=== PATIENT | male | born 1950 | race African-American/Black ===

== ENCOUNTER 2019-02-26 09:15 | Inpatient (IN) | payer OTHER, MEDICAID ==
[~2019-02-26] VITALS: Ht 175.3 cm; Wt 99.8 kg
[2019-02-26 09:15] VITALS: BP 180/89
[~2019-02-26 09:15] MED LIST: ACETAMINOPHEN325 M1 PO; ADULT LOW DOSE81 MG PO; ATENOLOL 50 MG50 M1 PO; BACLOFEN 10MG T10 MG PO; COUMADIN 3 MG TA3 MG PO; DEPAKOTE ER500 MG PO; DESYREL100 MG PO; DILANTIN50 MG PO; GABAPENTIN100 MG PO; HYDROCODON-ACE1 EAC4 PO; KEPPRA 500 MG500 M1 PO; LEVOFLOXACIN250 MG PO; LIPITOR40 MG PO; MOM PO; MORPHINE S10 MG/5 M2 PO; MORPHINE SUBLING; NEURONTIN600 MG PO; NORVASC10 MG PO; PHENYTOIN SODI100 M3 PO; PHENYTOIN100 MG/4 M PO; RISPERDAL 1 MG T1 MG PO; RISPERDAL0.5 MG PO; ROXANOL 20 M20 MG/ML PO; THERA-M CAPLET1 EAC1 PO
[2019-02-26] MEDS ORDERED: CARVEDILOL12.5 MG PO (09:23)
[2019-02-26] MEDS ORDERED: ELIQUIS5 MG PO (09:24)
[2019-02-26] MEDS ORDERED: LISINOPRIL2.5 MG PO (09:25)
[2019-02-26] MEDS ORDERED: IPRAT-ALBUT 0.5-3 ML INH (09:25)
[2019-02-26] MEDS ORDERED: MELATONIN3 M1 PO (09:26)
[2019-02-26] MEDS ORDERED: NYSTATIN1 EA10 TOP (09:28)
[2019-02-26] MEDS ORDERED: SEROQUEL 25 MG25 MG PO (09:29)
[2019-02-26] MEDS ORDERED: FLOMAX0.4 MG PO (09:29)
[2019-02-26] MEDS ORDERED: OLANZAPINE ODT5 MG PO (09:29)
[2019-02-26] MEDS ORDERED: VITAMIN D32000 UNIT PO (09:31)
[2019-02-26] MEDS ORDERED: THEREMS-M1 EACH PO (09:31)
[2019-02-26] MEDS ORDERED: XIFAXAN 200 MG200 MG PO (09:32)
[2019-02-26 10:10] LABS: ABSOLUTE NEUTROPHILS 6.8 thou/uL (1.4-8.2); HEMATOCRIT 37.6 % (42.0-52.0); HEMOGLOBIN 12.4 gm/dL (14.0-18.0); LYMPHOCYTES 17.4 % (24.0-44.0); MCH 32.3 pg (26.0-34.0); MCV 97.8 fL (80.0-100.0); MONOCYTES 9.2 % (1.0-8.0); PLATELET COUNT 349 thou/uL (150-400); POLYS 66.4 % (36.0-66.0); RBC 3.85 mil/uL (4.50-6.00); RDW 13.1 % (10.5-14.5); WBC 10.2 thou/uL (4.0-11.0)
[2019-02-26 10:21] LABS: ANION GAP 6 mmol/L (7-16); BUN 38 mg/dL (7-18); CALCIUM 10.5 mg/dL (8.5-10.1); CHLORIDE 106 mmol/L (98-107); CO2 28 mmol/L (21-32); GLUCOSE 131 mg/dL (74-106); POTASSIUM 5.1 mmol/L (3.5-5.1); SODIUM 140 mmol/L (136-145)
[2019-02-26 10:30] LABS: MAGNESIUM 2.3 mg/dL (1.8-2.4); TROPONIN-I <0.06 ng/mL (<0.06)
--- NOTE | 2019-02-26 10:50 | EKG ---
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
[2019-02-26 11:17] LABS: URINE BILIRUBIN NEGATIVE (Negative); URINE BLOOD NEGATIVE (Negative); URINE CLARITY CLEAR; URINE COLOR YELLOW; URINE GLUCOSE-RANDOM* NEGATIVE (Negative); URINE KETONES NEGATIVE (Negative); URINE LEUKOCYTES-REFLEX NEGATIVE (Negative); URINE NITRITE-REFLEX NEGATIVE (Negative); URINE PROTEIN (DIPSTICK) NEGATIVE (Negative); URINE UROBILINOGEN 0.2 E.U./dl (0.2-1.0)
[2019-02-26 11:42] LABS: AMP/METHAMP Negative (Negative); BARBITURATES Negative (Negative); BENZODIAZEPINES Negative (Negative); COCAINE Negative (Negative); METHADONE Negative (Negative); OPIATES Negative (Negative); PCP Negative (Negative)
--- NOTE | 2019-02-26 11:50 | NUR ---
THIS SHORER RECEIVED A CALL FROM [facility] WHERE THE PT IS A PT AT. ISAURA IS THE PERSON WHO CALLED FROM [facility]. ISAURA STATED THAT THE PT'S SISTER ANAI CALLED THE FACILITY AND DEMANDED THAT THE PT BE CHANGED TO A CODE FROM A DNR. ISAURA STATED THAT THE PT IS A DNR AND THAT THE SISTER ANAI IS NOT THE DPOA AND THERE IS NO PAPERWORK INDICATING THAT SHE IS. ISAURA STATED THAT ANAI BROUGHT IN A PAPER THAT THE PT SIGNED THAT STATED ANAI CAN RECEIVE MEDICAL INFOMATION REGARDING THE PT, BUT NOT DPOA. ISAURA STATED THAT THE PT'S SISTER ANAI REFUSED TO ALLOW [facility] SEND THE PT'S INFORMATION BACK TO THE [facility]. ISAURA STATED THAT [facility] BROUGHT THE PT BACK TO THE FACILITY BECAUSE THE PT REQUESTED IT. THE PT'S SISTER DID NOT WANT THE PT TO RETURN TO [facility] UPON LEAVING [facility]. ISAURA STATED THAT SHE WOULD FAX OVER A COPY OF THE PAPER THAT ANAI BROUGHT IN TO HER FACILITY.
[2019-02-26 12:30] VITALS: BP 139/58
[2019-02-26 12:57] VITALS: BP 139/58
[2019-02-26 13:40] VITALS: BP 155/59
[2019-02-26 14:00] VITALS: BP 165/75
[2019-02-26 19:20] VITALS: BP 131/60
--- NOTE | 2019-02-26 20:11 | NUR ---
Received pt from the ER, alert and oriented to self. 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 left sided hemiparesis. POC followed, pt is a feeder and has a good appetite, medication are tolerated well. No signs or verbalizations of distress have been noted. Informed his sister Shelby who he said is his POC for health care. Endorsed to the night nurse.
--- NOTE | 2019-02-27 04:20 | NUR ---
Pt. rested quietly at intervals during the night when checked on during frequent rounds. He offers no c/o pain. Incontinent of urine and viki care given. Bed alarm is on.
[2019-02-27 04:49] LABS: ALBUMIN 3.3 g/dL (3.4-5.0); CALCIUM 9.3 mg/dL (8.5-10.1); CREATININE 1.3 mg/dL (0.7-1.3); POTASSIUM 4.2 mmol/L (3.5-5.1)
[2019-02-27 04:56] LABS: HEMATOCRIT 33.9 % (42.0-52.0); HEMOGLOBIN 11.3 gm/dL (14.0-18.0); MCHC 33.3 g/dL (28.0-37.0); MCV 99.2 fL (80.0-100.0); RBC 3.42 mil/uL (4.50-6.00); RDW 12.6 % (10.5-14.5); WBC 6.4 thou/uL (4.0-11.0)
[2019-02-27 08:00] VITALS: BP 175/77
[2019-02-27 15:00] VITALS: BP 186/86
--- NOTE | 2019-02-27 16:35 | NUR ---
Assumed pt care at 7am.Pt in bed most of the time today.Turned and repositioned q2h for comfort.Assessment completed.vss but elevated bp noted. Meds given as ordered and well tolerated.Color Control Operator assisted pt with meals.Good appetite noted.Sister here later this afternoon.Updates given and she said she will return tomorrow to discuss with Dr about dc planning.Complete bath and bed change done today.Ivf cont.No verbal c/o but pt constantly calling out for time and when food will be deliver.Will continue to monitor.
[2019-02-27 19:13] VITALS: BP 204/68
[2019-02-27 19:15] VITALS: BP 210/67
[2019-02-27 20:32] VITALS: BP 202/68
[2019-02-28 00:39] VITALS: BP 203/68
[2019-02-28 03:14] VITALS: BP 155/69
--- NOTE | 2019-02-28 04:59 | NUR ---
ASSUMED CARE OF PT AT 1900HRS. PT IS AOX2 THIS SHIFT. FALL PRECAUTON IN PLACE. PT HAD ELEVATED BP THIS SHIFT AND WAS TREATED WITH OT BP MEDS PER AVIATION ELECTRONICS TECHNICIAN. PT'S SISTER (LIDIA) WHO IS ALSO DPOA, WOULD LIKE TO BE INFORMED ABOUT ANY CHANGES. LIDIA WOULD LIKE TO LOOK IN TO NEW CARE FACILITY FOR PT. PT WAS ABLE TO GET SOME SLEEP THIS SHIFT. NO S/S OF ACUTE DISTRESS WILL CONTINUE TO MONITOR.
[2019-02-28 07:10] LABS: CALCIUM 10.3 mg/dL (8.5-10.1)
--- NOTE | 2019-02-28 12:33 | NUR ---
DISCHARGE PLANNING. PATIENT ADMITTED FROM [facility]. PATIENTS SISTER LIDIA DOES NOT WANT PATIENT TO RETURN TO [facility] AT DISCHARGE. SISTER REQUESTS PAT[facility] REFERRAL FAXED TO . CALL PLACED TO ADMISSIONS, SPOKE WITH JOSSE, CREDIT ANALYSIS MANAGER. JOSSE STATES THEY HAD RECEIVED REFERRAL FROM [facility] WHEN PATIENT WAS ADMITTED THERE AND PATIENT WAS DENIED FOR ADMISSIONS. JOSSE STATES THEY HAD SPOKEN WITH PATIENTS SISTER AND SHE IS AWARE OF ADMISSION DENIAL TO [facility]. UNIT SW NOTIFIED. FOLLOWING TO ASSIST.
--- NOTE | 2019-02-28 14:06 | NUR ---
PT ADMITTED RELATED TO [facility]. CM REVIEWED CHART AND SPOKE WITH CARE TEAM. CM MET WITH PT AND ANAI - SISTER AT BEDSIDE THIS DAY. PT IS LEGALY BLIND WITH NANCY MELLOBROCK. PT APPEARED ALERT AND ORIENTED TO SELF AND PLACE BUT COULDN'T RECALL NAME OF THE FACILITY HE HAD LIVED ST PRIOR TO ADMISSION. PT AND SISTER INDICATED THAT PT HAD BEEN LIVING AT [facility] AND THAT PT HAD LIVED THERE FOR 9 YEARS. THEY INDICATED THAT PT HAD USED A WHEELCHAIR. HOSPITAL BED, AND [facility]YDI LIFT TO ASSIST WITH MOBILITY AIR EXPORT AGENT. SISTER INDICATED THAT PT HAD BEEN AT [facility] Jan AND HAD BEEN DIAGNOSED WITH PROSTATE CANCER AND THAT PT HAD BEEN DISCHARGED BACK TO [facility] WITHOUT HER HAVING BEEN NOTIFIED. SISTER INDICATED THAT SHE DIDN'T WANT PT TO GO BACK TO OP [facility] IT IS DIRTY, AND PT RECIEVES POOR CARE THERE. CM INDICATED THAT WE CAN ATTEMPT TO ASSIST WITH FINDING ALTERNATE PLACEMENT BUT THAT WE CAN'T GAUREENTEE THAT WE WILL BE ABLE TO FIND ANOTHER ACCEPTING FACILITY IN TIME FOR PT'S DISCHARGE. THAT INFORMATION WAS NOT WELL REVIEVED BY PT'S SISTER. SHE ASKED THAT REFERRAL BE SENT TO [facility] FOR REVIEW FOR POSSIBLE ADMISSION. REFERRAL WAS SENT BY [place] ENOLOGIST AND SHE FOLLOWED UP WITH [facility] IN ADMISSIONS WHO STATED THAT THEY HAD RECIEVED REFERRAL FROM [facility] AND THAT THEY HAD DECLINED PT AT THAT TIME. CM CALLED SISTER AND NOTIFIED HER OF THIS AND ASKED FOR ALTERNATE FACILITIES TO SEND REFERRALS TO AND SISTER STATED THAT SHE DIDN'T HAVE THE LIST AND DIDN'T WANT [facility] TO EMAIL IT TO HER THAT IT WAS 'S RESPONSIBILITY TO FIND A GOOD CLEAN FACILITY FOR PT TO GO TO. [facility] INDICATED THAT [facility] DOESN'T SEND INFOR OUT WITHOUT PATIENT/FAMILY PERMISSION. SISTER ASKED TO SPEAK WITH 'S PARKING GARAGE MANAGER CM PROVIDED CM SUPERVISORS CONTACT NUMBER. CM TO FOLLOW INDICATED WITH [place] PLANNING.
[2019-02-28 15:19] VITALS: BP 173/64
--- NOTE | 2019-02-28 16:13 | NUR ---
DC PETROPHYSICIST SENT REFERRAL TO [facility] DECLINED. CM SENT REFERRAL TO [facility], AND [facility]. CM TO FOLLOW INDICATED WITH DC PLANNING.
--- NOTE | 2019-02-28 19:19 | NUR ---
PT DROWSY THIS AM. MORE ALERT THIS AFTERNOON. BP ELEVATED. DISCUSSED WITH DR COOLEY AND BP MEDS CHANGED. PT'S SISTER/DPOA HERE TODAY AND UPDATED. CASE MANAGEMENT WORKING WITH HER ON DISCHARGE PLANNING. PT COMPLAINING OF CONSTIPATION. BISCODYL SUPPOSITORY GIVEN WITH BM FOLLOWING. TURNED Q2H. VOIDING LARGE AMOUNTS OF URINE. REPORT GIVEN TO CRYSTAL LAPPER RN.
[2019-02-28 20:19] VITALS: BP 148/69
[2019-03-01 05:53] LABS: HEMATOCRIT 38.1 % (42.0-52.0); HEMOGLOBIN 12.5 gm/dL (14.0-18.0); MCH 32.1 pg (26.0-34.0); MCHC 32.7 g/dL (28.0-37.0); MCV 98.2 fL (80.0-100.0); RBC 3.88 mil/uL (4.50-6.00); WBC 7.8 thou/uL (4.0-11.0)
--- NOTE | 2019-03-01 05:56 | NUR ---
assumed pt care @1915. pt a&o to self and forgetful. pt was confused at the start of the shift. pt wanted nurse to call sister and tell her to bring in his plant so he can water it. pt stated [facility]. pt was redirected and meds given. pt was able to rest for the most part overnight with little interruptions with soil checking. pt is incont of large amount of urine. pt declines male ext cath. pt is able to urinate in the urinal with assist. v/s stable. frequent repositioning for comfort. no s/s of distress. will cont to monitor
[2019-03-01 05:58] LABS: CALCIUM 9.8 mg/dL (8.5-10.1); POTASSIUM 4.8 mmol/L (3.5-5.1)
[2019-03-01 08:00] VITALS: BP 173/83
--- NOTE | 2019-03-01 12:09 | NUR ---
Received awake on bed. Due medications given as prescribed, able to swallow meds w/o difficulty. Pt A+O to person, blind- assisted in ADLs, eating and drinking. On room air. Vital signs stable, with BP elevation this am- blood pressure medications given as prescribed. Able to use urinal to pass urine, checked frequently and changed as needed. With NS at 75cc/hr, infusing well at R FA. With BKA, bilateral- kept elevated. A/w placement and discharge instructions- CM aware. On regular diet- tolerating well; no nausea, no vomiting and no abdominal pain noted. Pt with on and off confusion on where is he is, reoriented frequently.
[2019-03-01 15:00] VITALS: BP 168/84
--- NOTE | 2019-03-01 16:11 | NUR ---
REFERRAL SENT TO [facility]. LEVEL II SCREENING REQUESTED. CM COMPLETED BUT DIDN'T SUBMIT SCREENING PT'S SISTER NOW STATES THAT [facility] IS NO LONGER A VIABLE OPTION. CM INDICATED THAT REFERRALS HAD BEEN SENT TO [facility] BUT THAT THEY DIDN'T HAVE ANY LTC BEDS, [facility], [facility], AND [facility]. CM TO FOLLOW INDICATED WITH DC PLANNING.
--- NOTE | 2019-03-01 18:45 | NUR ---
REPORT GIVEN TO THIS RN BY NURSE Carpio AT 1500 HOURS. PATIENT IN BED, CALM, COOPERATIVE WITH CARE. PATIENT WITH BKA BILATERAL-KEPT ELAVATED. PATIENT USES URINAL TO VOID, INCONTINENT OF BOWEL. NS INFUISING AT 75ML/HR, NO SIGN OF INFILTRATION NOTED. PATIENT DENIES HAVING PHYSICAL PAIN, REQUIRES ASSIST OF STAFF TO FEED DUE TO PATIENT IS BLIND. PATIENT HAS LEFT SIDED WEAKNESS FROM CVA. NO SIGN OF ACUTE DISTRESS NOTED AT THIS TIME, WILL MONITOR FOR SAFETY.
[2019-03-01 19:08] VITALS: BP 153/79
--- NOTE | 2019-03-02 03:16 | NUR ---
progress pt alert and oriented to self, family, staff, place and situation. gets confused at times. sister Shelby at bedside raising concerns regarding his care here and at previous facility, upset that was considering sending him back there . pt is incontinent at times but does use the urinal with some guidance.assists in repositioning self. taking tylenol for right hip pain with effect sleeps after. continue poc.
[2019-03-02 07:27] VITALS: BP 134/77
--- NOTE | 2019-03-02 12:51 | NUR ---
[facility] STATED THAT THEY CAN'T ACCEPT PT. CM SPOKE WITH ROSY AT [facility] AND THEY INDICATED THAT THEY HAD ATTEMPTED TO REACH OUT TO SW AT [facility] AND HADN'T BEEN ABLE TO REACH ANYONE. CM CALLED [facility] AND SPOKE WITH MARISSA CAREY AND SHE INDICATED THAT PT'S ORIGINAL ADMIT DATE IS 05/25/2009 AND THAT THEIR BUSINESS OFFICE STAFF WOULD HAVE PASSR SCREENINGS ON FILE AND SHE WASN'T THERE. CM TO FOLLOW INIDCATED WITH DC PLANNIN. SISTER APPEALED DISCHARGE BEFORE ORDERS WERE ENTERED. PAPERWORK FOR APPEAL WAS TAKEN TO [facility] [employer] FOR THEM TO FAX. CM TO FOLLOW INDICATED WITH DC PLANNING.
[2019-03-02 14:17] VITALS: BP 148/82
--- NOTE | 2019-03-02 14:30 | NUR ---
PT A&OX3, VSS, PHANTOM PAIN IN BILAT STUMPS. PATIENT LUNGS CLEAR, BREATHING REGULAR, NO COUGH PRESENT AT THIS TIME, PATIENT STATES HE FEELS CONGESTED THOUGH. IV REMAINS IN RIGH FOREARM. NO SIGNS OF DISTRESS. REPORT GIVEN TO ONCOMING NURSE APPROX 1315.
[2019-03-02] MEDS ORDERED: COREG25 MG PO (14:33)
[2019-03-02] MEDS ORDERED: NORVASC10 MG PO (14:34)
[2019-03-02] MEDS ORDERED: OLANZAPINE ODT5 MG PO (14:34)
[2019-03-02] MEDS ORDERED: SEROQUEL 25 MG25 MG PO (14:34)
[2019-03-02 19:27] VITALS: BP 188/88
--- NOTE | 2019-03-03 06:45 | NUR ---
progress pt a/o x 4, vss. using call light appropriately. incontinent of urine. pain controlled with tylenol taking sparingly. pt hopes to discharge back to [place]. pt states his daughter doesn't want him to go back but he does because he knows them and is happy there.
[2019-03-03 07:58] VITALS: BP 159/54
--- NOTE | 2019-03-03 12:11 | NUR ---
ASSUMED CARE OF THE PT AT 0700. PT IS A & O X4. pT IS A FEEDER AND TOLERATES WHOLE MEDS FINE. PTS LUNGS ARE CLEAR AND RADIAL PULSES ARE STRONG. CAP REFILL IS LESS THAN 3 SECONDS. SKIN IS CLEAR WITH MINIMAL SCARS. IV IS IN R AC AND IS DRY AND INTACT. PT IS RA. PT IS CONCERNED ABOUT DISCHARGING TO PREVIOUS FACILITY, WANTS TO SPEAK WITH CASE MANAGEMENT. FALL PRECAUTIONS ARE IN PLACE, BED IN LOWEST POSITION AND HOURLY ROUNDING IS IN PLACE. WILL CONTINUE TO MONITOR THE PT.
--- NOTE | 2019-03-03 12:54 | NUR ---
DPOA ON FILE IS NOT A LEGAL DOCUMENT IN [place] OR [place] IT ISN'T WITNESSED OR NOTERIZED. TODAY TWO PHYSICIANS VISITED PT AND INIDCATED THAT HE IS ABLE TO MAKE HIS OWN CHOICES. CM FOLLOWED UP WITH PT AND HE INDICATED THAT IT IS HIS WISH TO RETURN TO OP [facility]ENTER SOON HE IS MEDICALLY STABLE. CM NOTIFIED [facility] AT [facility]. CM NOTIFIED CM PRODUCTION MANUFACTURING WORKER AND KELLY OF RISK MANAGEMENT. CM TO FOLLOW INDICATED WITH DC PLANNING.
[2019-03-03 15:42] VITALS: BP 171/65
--- NOTE | 2019-03-03 16:16 | NUR ---
CM MET WITH PT'S SISTER LIDIA, KELLY, AND JACLYN FOR A SHORT TIME THIS AFTERNOON. SISTER AGAIN EXPRESSED CONCERNS ABOUT PT'S RETURNING TO OP [facility]. WE WERE STILL AWAITING DETERMINATION OF [facility] APPEAL. [facility] NOTIFIED CM THAT APPEAL INITIATED ON PT'S BEHALF WAS DENIED THAT TOMORROW 03/04 IS LIABLE DAY LAST COVERED DAY IS TODAY NOTIFIED AT 3:58. CM CALLED AND CONFIRMED WITH [facility] DISCHARGE IS [place]LD. THEY INDICATED THAT PT CUT OFF SAW GRADER WAS NOTIFIED, THAT LETTER WOULD BE MAILED, AND THAT THEY WERE GIVEN INFORMATION TO REQUEST A RECONSIDERATION APPEAL IF DESIRED. CM NOTIFIED KELLY WITH RISK MANAGEMENT. CM IS AWAITING DIRECTION TO HOW TO ASSIST WITH DISCHARGE PLANNING.
[2019-03-03 19:59] VITALS: BP 130/77
--- NOTE | 2019-03-04 08:12 | NUR ---
PROGRESS PT ALERT AND ORIENTED BUT CONFUSED AT TIMES. PT IS BLIND AND SOMETIMES GETS ANXIOUS ABOUT WHAT IS GOING ON AROUND HIM. FREQUENT ROUNDING TO REASSURE PT OF SURROUNDINGS. REPORTS PAIN TO BACK THAT IS RELIEVED WITH TYLENOL. IVF'S INFUSING ORDERED. PT INCONTINENT BUT CALLS TO BE CLEANED UP AFTER. ASSISTS IN REPOSITIONING SELF. PT HOPES TO DISCHARGE BACK TO [facility] TODAY.
--- NOTE | 2019-03-04 09:03 | NUR ---
PT IS TO DISHCARGE TO [facility] THIS DAY Thursday03/04/19. [employer] [place] V[place] SET UP FOR 11:30. CHART COPY MADE. ORDERS TO BE FAXED. REPORT TO BE CALLED TO . VARIETY LATHE OPERATOR NOTIFIED PT'S SISTER. NO OTHER CM INTERVENTION INDICATED. CASE CLOSED.
[2019-03-04 09:09] VITALS: BP 154/78
--- NOTE | 2019-03-04 12:23 | NUR ---
Assumed pt care this am, pt is alert and oriented but could get confused at times d/t his blindness. Frequent rounding done, viki care done since pt is incontinent. Q2 turns done during the am. Pt clearly stated he wants tp go back to [facility] this has been his home for many years and he has alot of friends there. Pt is a feeding, medication and diet is well tolerated. POC followed, no signs or verbalizations of distress have been noted. IV removed, report given to the facility. Pt has been picked up by transport, clothes (personal belongings) sent home with the pt. Pt is now dc
== END 2019-03-04 12:30 | DRG 682 ==
LOC: ER 09:15 → EROBS 11:54 → 4W 11:54
PROVIDERS: Emergency Medicine; ADMIT Hospitalist
DX: N17.0 Acute kidney failure with tubular necrosis (principal); G93.41 Metabolic encephalopathy; I69.354 Hemiplegia and hemiparesis following cerebral infarction affecting left non-dominant side; F20.9 Schizophrenia, unspecified; J44.9 Chronic obstructive pulmonary disease, unspecified; C61 Malignant neoplasm of prostate; I10 Essential (primary) hypertension; G40.909 Epilepsy, unspecified, not intractable, without status epilepticus; E78.5 Hyperlipidemia, unspecified; K58.9 Irritable bowel syndrome, unspecified; I73.9 Peripheral vascular disease, unspecified; R41.0 Disorientation, unspecified; T50.905A Adverse effect of unspecified drugs, medicaments and biological substances, initial encounter; N40.0 Benign prostatic hyperplasia without lower urinary tract symptoms; F41.9 Anxiety disorder, unspecified; F32.9 Major depressive disorder, single episode, unspecified; Z89.612 Acquired absence of left leg above knee; Z89.611 Acquired absence of right leg above knee; Y92.89 Other specified places as the place of occurrence of the external cause; Z79.2 Long term (current) use of antibiotics; Z79.82 Long term (current) use of aspirin; Z79.899 Other long term (current) drug therapy
CPT/HCPCS: 10040